=== PATIENT | male | born 1960 | race Caucasian/White ===

== ENCOUNTER → 2017-02-07 | Outpatient (CLI) | payer OTHER, BC ==
[~2017-02-07] MED LIST: ASPIR-TRIN325 M1 PO; CYCLOBENZAPRINE10 MG PO; DAILY MULTIPLE1 EACH PO; DILAUDID4 MG PO; DURAGESIC75 MCG TD; EXALGO8 MG PO; FLEXERIL5 MG PO; HYDROMORPHONE HC8 MG PO; IRON325 M1 PO; LO-DOSE ASPIRIN81 M2 PO; Lopressor PO; OXYMORPHONE HCL10 M1 PO; OXYMORPHONE HCL10 MG PO; Zestril,Prinivil PO
== END | disposition home or self-care (01) ==
DX: M17.12 Unilateral primary osteoarthritis, left knee (principal); R26.2 Difficulty in walking, not elsewhere classified; M62.81 Muscle weakness (generalized); M25.662 Stiffness of left knee, not elsewhere classified
CPT/HCPCS: 97110 GP; 97150 GO; 97161 GP; 97165 GO; G8978 GP; G8979 GP; G8980 GP; G8987 GO; G8988 GO; G8989 GO

== ENCOUNTER 2017-02-13 09:14 | Inpatient (IN) | payer OTHER, BC ==
[~2017-02-13] VITALS: Ht 182.9 cm; Wt 120.3 kg
[2017-02-13 10:25] VITALS: BP 145/88
[2017-02-13 16:07] VITALS: BP 131/88
[2017-02-13 16:18] LABS: GFR ESTIMATE (CALCULATED) > 59 mL/min/
[2017-02-13 16:21] LABS: INTER. NORMALIZED RATIO 1.1; PROTHROMBIN TIME 10.8 (9.2-11.2)
[2017-02-13 20:05] VITALS: BP 127/75
[2017-02-13 23:54] VITALS: BP 122/74
[2017-02-14 04:05] VITALS: BP 132/82
[2017-02-14 06:14] LABS: HEMATOCRIT 34.7 % (38.0-50.0); MCV 88.5 FL (86-99)
[2017-02-14 06:46] LABS: INTER. NORMALIZED RATIO 1.1
[2017-02-14 06:50] LABS: ANION GAP 5 MEQ/L (2-14); CHLORIDE 105 MEQ/L (99-109); GFR ESTIMATE (CALCULATED) > 59 mL/min/; GLUCOSE 122 mg/dL (70-99); POTASSIUM 4.3 MEQ/L (3.7-5.4); SAMPLE HEMOLYSIS CHECK 0; SAMPLE ICTERIC CHECK 0; SAMPLE LIPEMIA CHECK 0; SODIUM 136 MEQ/L (136-147); UREA NITROGEN (BUN) 14 mg/dL (9-23)
[2017-02-14] MEDS ORDERED: COUMADIN2.5 MG PO (07:55)
[2017-02-14 08:00] VITALS: BP 138/60
[2017-02-14 12:21] VITALS: BP 143/86
[2017-02-14 16:03] VITALS: BP 158/89
[2017-02-14 20:00] VITALS: BP 165/88
[2017-02-15 00:05] VITALS: BP 135/84
[2017-02-15 04:13] VITALS: BP 117/61
[2017-02-15 04:56] LABS: HEMATOCRIT 34.7 % (38.0-50.0); MCV 87.2 FL (86-99)
[2017-02-15 05:11] LABS: INTER. NORMALIZED RATIO 1.4; PROTHROMBIN TIME 13.9 (9.2-11.2)
[2017-02-15 07:30] VITALS: BP 131/64
[2017-02-15 11:43] VITALS: BP 142/83
[2017-02-15 15:51] VITALS: BP 138/81
== END 2017-02-15 17:15 | DRG 470 ==
LOC: 2SOUTH 09:14 → 3WEST 16:00
PROVIDERS: Orthopaedic Surgery
PROC: 0SRD0J9 Replacement of Left Knee Joint with Synthetic Substitute, Cemented, Open Approach (ICD-10-PCS; principal; 2017-02-13)
DX: M17.0 Bilateral primary osteoarthritis of knee (principal); R26.2 Difficulty in walking, not elsewhere classified; G89.18 Other acute postprocedural pain; M25.562 Pain in left knee; G89.29 Other chronic pain; M51.36 Other intervertebral disc degeneration, lumbar region; I83.90 Asymptomatic varicose veins of unspecified lower extremity; E66.9 Obesity, unspecified; Z68.35 Body mass index [BMI] 35.0-35.9, adult; Z79.891 Long term (current) use of opiate analgesic; Z87.891 Personal history of nicotine dependence; Z96.641 Presence of right artificial hip joint
CPT/HCPCS: 80048; 82565; 85014; 85018; 85610; 88304; C1713; J1885; J2250; J2405; J2795; J3370; J7050; J7120